=== PATIENT | female | born 1970 | race Caucasian/White ===

== ENCOUNTER 2024-07-20 07:50 | Day surgery (SDC) | payer BC ==
[~2024-07-20] VITALS: Ht 160 cm; Wt 72.6 kg
[~2024-07-20 07:50] MED LIST: ALBU90OI INH; ALBU90OI6 INH; AZIT250 PO; CLIN150 PO; CODGUAEL PO; HYDACE5 PO; NS 500 ML IV ONE; PRED20 PO; TRELEGY ELLIPT1 EAC1 INH
[2024-07-20] MEDS ORDERED: NS 500 ML IV ONE (08:15)
[2024-07-20] MEDS ORDERED: propofoL 40 ML IV ONE (08:33)
[2024-07-20] MEDS ORDERED: Midazolam HCl 1MG / ML 2ML Vial ONE (08:33)
--- NOTE | 2024-07-20 08:42 | NUR ---
07/20/24 0842 Juana Avalos TIME OUT DONE PRIOR TO INJECTION WITH DR ADAME. PT TOLERATED BLOCK WELL. 8ML LIDOCAINE 1% WITH EPI 1:100,000 BUFFERRED WITH SODIUM BICARB INJECTED AT 0840
[2024-07-20 09:34] VITALS: BP 116/61
--- NOTE | 2024-07-20 09:39 | NUR ---
07/20/24 0939 Malu Schumacher 0910: PT VERY SLEEPY, EXTRA TIME GIVEN FOR HER TO WAKE UP COMPLETELY.
== END 2024-07-20 09:44 | disposition home or self-care (01) ==
LOC: ORSCSDS 07:50
PROVIDERS: Orthopaedic Surgery
PROC: 01N54ZZ Release Median Nerve, Percutaneous Endoscopic Approach (ICD-10-PCS; principal; 2024-07-20 09:15)
DX: G56.03 Carpal tunnel syndrome, bilateral upper limbs (principal); J45.909 Unspecified asthma, uncomplicated; E66.9 Obesity, unspecified; Z68.28 Body mass index [BMI] 28.0-28.9, adult; Z79.899 Other long term (current) drug therapy
CPT/HCPCS: J2250; J2704; J7040